=== PATIENT | female | born 1985 | race Caucasian/White ===

== ENCOUNTER 2020-12-28 05:01 | Emergency (ER) | payer OTHER ==
[~2020-12-28 05:01] MED LIST: CEFUROXIME500 MG PO; ESCITALOPRAM OX10 MG PO; FERROUS SULFAT325 MG PO; HYDROCODON-ACE1 EAC2 PO; HYDROCODON-ACE1 EAC4 PO; IBUPROFEN600 MG PO; JANUVIA25 MG PO; METFORMIN HCL1000 MG PO; NAPROSYN500 MG PO; NORCO 5-325 TA1 EACH PO; NORCO 7.5-3251 EACH PO; PREDNISONE 20 M20 MG PO; PYRIDIUM200 MG PO; SUMATRIPTAN SU100 MG PO; VITAMIN D2 PO; ZOFRAN8 MG PO
[2020-12-28 06:58] LABS: HEMOGLOBIN 11.4 gm/dl (12.3-15.3); RED BLOOD COUNT 4.44 M/UL (4.00-5.10); WHITE BLOOD COUNT 6.5 K/UL (4.5-11.0)
[2020-12-28 07:12] LABS: BUN/CREATININE RATIO 14 (0-10)
[2020-12-28] MEDS ORDERED: ZOFRAN4 MG PO (08:55)
== END 2020-12-28 11:22 | disposition home or self-care (01) ==
LOC: ER1 05:01
PROVIDERS: Emergency Medicine
DX: R11.2 Nausea with vomiting, unspecified (principal); R19.7 Diarrhea, unspecified; Z90.49 Acquired absence of other specified parts of digestive tract
CPT/HCPCS: 80053; 81001; 83690; 84703; 85025; 96374; 99284; J2405; J7030

== ENCOUNTER 2021-01-08 22:39 | Emergency (ER) | payer OTHER ==
[~2021-01-08 22:39] MED LIST changes: +ZOFRAN4 MG PO
== END 2021-01-09 01:15 | disposition home or self-care (01) ==
LOC: ER1 22:39
DX: U07.1 COVID-19 (principal); Z90.49 Acquired absence of other specified parts of digestive tract
CPT/HCPCS: 99283; U0002